=== PATIENT | male | born 1990 | race Two or more races ===

== ENCOUNTER 2018-10-03 10:24 | Emergency (ER) | payer MEDICAID ==
[~2018-10-03] VITALS: Ht 172.7 cm; Wt 75.0 kg
[2018-10-03] MEDS ORDERED: SODIUM CHLORIDE 0.9% 1,000 ML IV ONE (11:02)
[2018-10-03] MEDS ORDERED: LIDOCAINE 1%/EPI 1:100,000 10 ML VIAL IJ ONE (11:15)
[2018-10-03] MEDS ORDERED: TETANUS, DIPHTHERIA, PERTUSSIS VAC/PF 0.5ML (>7YR OLD) IM ONE (11:15)
[2018-10-03] MEDS ORDERED: BACITRACIN ZINC OINT UDPKT TOP ONE (11:15)
[2018-10-03 11:35] LABS: BASOPHILS % 0.5 % (0.0-2.0); EOSINOPHILS % 0.3 % (0.0-5.0); HEMATOCRIT. 40.4 % (42.0-52.0); HEMOGLOBIN. 13.6 g/dL (14.0-18.0); LYMPHOCYTES % 22.1 % (20.0-50.0); MEAN CORPUSCULAR HEMOGLOBIN 32.5 pg (28.0-32.0); MEAN CORPUSCULAR VOLUME 96.5 fL (80.0-94.0); MEAN PLATELET VOLUME 7.3 fl (7.4-10.4); MONOCYTES % 4.1 % (2.0-8.0); PLATELET 271 x1000/uL (130-400); RED BLOOD CELL COUNT 4.19 mill/uL (4.7-6.1); RED CELL DISTRIBUTION WIDTH 13.6 % (11.6-14.6)
[2018-10-03 11:38] LABS: CHLORIDE 112 mEq/L (98-107)
[2018-10-03 11:40] LABS: PROTHROMBIN TIME 10.5 sec (9.6-11.0)
[2018-10-03 11:43] LABS: ETHANOL BLOOD 237 mg/dL
[2018-10-03] MEDS ORDERED: CEFAZOLIN 1000MG PREMIX 50 ML IV ONE (11:45)
[2018-10-03] MEDS ORDERED: LIDOCAINE HCL/EPINEPHRINE 1%-EPI 1:100,000 20 ML VIAL MC ONE (12:30)
[2018-10-03 15:32] VITALS: BP 110/45
== END 2018-10-03 16:19 | disposition short-term general hospital (02) ==
LOC: ER 10:24
DX: S56.221A Laceration of other flexor muscle, fascia and tendon at forearm level, right arm, initial encounter (principal); F10.129 Alcohol abuse with intoxication, unspecified; Y90.7 Blood alcohol level of 200-239 mg/100 ml; W25.XXXA Contact with sharp glass, initial encounter; Y93.89 Activity, other specified; Y92.018 Other place in single-family (private) house as the place of occurrence of the external cause
CPT/HCPCS: 36415; 73090; 80053; 80320; 85025; 85610; 86850; 86900; 86901; 90471; 90715; 96365; 99285; J0690; J3490; J7030; Z7610; G0480